=== PATIENT | female | born 1985 | race Caucasian/White ===

== ENCOUNTER 2019-05-11 18:51 | Emergency (ER) | payer SELFPAY, OTHER | END 2019-05-11 20:51 | disposition home or self-care (01) | LOC: ER 18:51 ==

== ENCOUNTER 2019-05-20 18:47 | Emergency (ER) | payer SELFPAY ==
[~2019-05-20] VITALS: Ht 165.1 cm; Wt 86.2 kg
[~2019-05-20 18:47] MED LIST: ACHD5005 PO; CEPH500T PO
--- OUTSIDE RECORDS SUMMARY | 2019-05-20 18:52 | XMS REPORT | Continuity of Care Document ---
Author Organization Unknown Address Unknown Allergies Active Description Code Type Severity Reaction Onset Reported/Identified Relationship to Patient Clinical Status Yes NO KNOWN DRUG ALLERGIES UNKNOWN NO KNOWN DRUG ALLERG Yes Penicillins [id number] Drug Allergy Unknown N/A 07/20/2012 Medications There is no data. Problems Date Dx Coded Attending Type Code Diagnosis Diagnosed By 05/18/2019 PERNELL WELCH Ot S62.632B DISP FX OF DISTAL PHALANX OF R MID FINGE 05/18/2019 PERNELL WELCH Ot S69.92XA UNSP INJURY OF LEFT WRIST, HAND AND FING 05/18/2019 PERNELL WELCH Ot W20.8XXA OTH CAUSE OF STRIKE BY THROWN, PROJECTED 05/18/2019 PERNELL WELCH Ot Z88.0 ALLERGY STATUS TO PENICILLIN Procedures There is no data. Results There is no data. Encounters ACCT No. Visit Date/Time Discharge Status Pt. Type Provider Facility Loc./Unit Complaint [id number] 05/11/2019 18:51:00 05/11/2019 20:51:00 DIS Outpatient PERNELL WELCH [facility] ER R HAND LAC [id number] 08/19/2014 10:20:00 08/19/2014 23:59:59 CLS Outpatient [id number] 04/05/2018 08:36:00 04/05/2018 23:59:00 DIS Outpatient BRAYAN FARFAN
[2019-05-20 19:11] VITALS: BP 128/78
== END 2019-05-20 19:11 | disposition home or self-care (01) ==
LOC: EDUNIT# 18:47 → ER 18:48
DX: S61.219D Laceration without foreign body of unspecified finger without damage to nail, subsequent encounter (principal); X58.XXXD Exposure to other specified factors, subsequent encounter

== ENCOUNTER → 2019-11-30 | Outpatient (CLI) | payer OTHER ==
--- NOTE | 2019-12-01 16:15 | Diagnostic Imaging Report ---
INDICATION: Anatomic assessment during normal . TECHNIQUE: Multiple real-time grayscale images were obtained over the gravid uterus. COMPARISON: None. FINDINGS: A single live intrauterine is currently in a cephalic presentation. Normal amount of amniotic fluid, index at 12.1 cm. Placenta is anterior and without previa. Visualized anatomical structures including the kidneys, bladder, stomach, intracranial structures, four-chamber heart, three-vessel cord, and cord insertion site as well as spine appearing unremarkable. Biometrical measurements are as follows: Biparietal 5.42 cm, age 22 weeks 4 days. Head circumference 19.66 cm, age 22 weeks 1 days. Abdominal circumference 17.08 cm, age 22 weeks 1 days. Femur length 3.84 cm, age 22 weeks 3 days. Sonographic estimate age: 22 weeks 3 days. Sonographic estimated date of delivery: 04/01/2020. Estimated Weight: 481 gm (+/- 70 gm). LMP percentile: 31%. heart rate: 152 beats per minute. number: 1 of 1. IMPRESSION: 1. Single viable intrauterine currently in a cephalic presentation. Sonographically estimated age 22 weeks 3 days for an estimated date of delivery April 01, 2020. No abnormalities suggested at this time. Dictated by: Dictated on workstation # [id number]
== END ==
LOC: RAD 14:52
PROVIDERS: ATTEND Obstetrics & Gynecology
DX: Z34.92 Encounter for supervision of normal pregnancy, unspecified, second trimester (principal); Z3A.22 22 weeks gestation of pregnancy
CPT/HCPCS: 76805